=== PATIENT | male | born 1980 | race Caucasian/White ===

== ENCOUNTER 2017-02-27 19:03 | Emergency (ER) | payer OTHER ==
[2017-02-27] MEDS ORDERED: Sodium Chloride 0.9% 1000 ML 1,000 ML IV SCH (19:30)
--- NOTE | 2017-02-27 19:47 | ERPHSYRPT ---
- History of Present Illness Time Seen by Provider: 02/27/17 19:11 Source: patient Exam Limitations: no limitations Patient Subjective Stated Complaint: pt arr sobbing and crying states he needs to be seen for his derpession-he has no way to get to his appt and is out of his meds -he has been staying in his room for 3 weeks coming out only to go to the br and tonight he decided to come get help -he denied suicidal or homicidal ideations Triage Nursing Assessment: pt is awake and alert and able to answer questions Physician History: FOR THE PAST 3 WEEKS PT HAS HAD A COUGH PRODUCTIVE OF WHITE PHLEGM AND INTERMITTENT SHORTNESS OF AIR; FOR THE PAST 2 DAYS PAIN IN BOTH LEGS; TODAY CRYING ALL DAY. PT STATES HE HAS BEEN SECLUDED IN HIS ROOM AT HOME FOR THE PAST 3 WEEKS. PT STATES HE HAD A PULMONARY EMBOLUS IN MAY 2016 AND WAS PLACED ON A BLOOD THINNER BUT HE HAS NOT TAKEN ANY OF HIS MEDICATIONS FOR THE PAST 3 MONTHS. PT DENIES SUICIDAL OR HOMICIDAL THOUGHTS TODAY; ADMITS TO 3 SUICIDE ATTEMPTS FROM 2013 - SEPTEMBER 2014. Allergies/Adverse Reactions: escitalopram oxalate [From Lexapro] Allergy (Mild, Verified 02/27/17 19:21) Hives IRREGULAR MOOD SWINGS ibuprofen Allergy (Mild, Verified 02/27/17 19:21) Skin Irritation EATS AWAY MY STOMACH LINING loratadine [From Claritin-D] Allergy (Mild, Verified 02/27/17 19:21) Difficulty Breathing pseudoephedrine sulfate [From Claritin-D] Allergy (Mild, Verified 02/27/17 19:21 ) Difficulty Breathing Home Medications: Aa8/A-Carnitin/Grp/[place]/Hc126 [Gabadone Capsule] 300 mg 02/27/17 [History] Lurasidone HCl [Latuda] 40 mg PO 02/27/17 [History] PANTOPRAZOLE 40 mg Tablet [Protonix 40MG Tablet] 1 tab 02/27/17 [History] Venlafaxine HCl [Effexor] 1 tab 02/27/17 [History] Hx Tetanus, Diphtheria Vaccination/Date Given: Yes Hx Influenza Vaccination/Date Given: No Hx Pneumococcal Vaccination/Date Given: No - Review of Systems Respiratory: Cough, Dyspnea Abdominal/Gastrointestinal: No Abdominal Pain, No Vomiting Musculoskeletal: Other (PAIN IN LEGS) Psychological: Anxiety, Depression, Emotional Lability All Other Systems: Reviewed and Negative - Past Medical History Pertinent Past Medical History: Yes Neurological History: Migraines ENT History: No Pertinent History Cardiac History: No Pertinent History Respiratory History: Asthma Endocrine Medical History: No Pertinent History Musculoskeletal History: Other GI Medical History: Hernia History: No Pertinent History Psycho-Social History: Anxiety, Depression, Panic Disorder Male Reproductive Disorders: No Pertinent History Other Medical History: PSYCHOTIC TENDANCIES. PARANOID TENDANCIES. ADHD. ADD. INTERMITTENT EXPLOSIVE DISORDER - Past Surgical History Past Surgical History: Yes Neuro Surgical History: No Pertinent History Cardiac: No Pertinent History Respiratory: No Pertinent History Gastrointestinal: No Pertinent History Genitourinary: No Pertinent History Musculoskeletal: No Pertinent History Male Surgical History: Vasectomy Other Surgical History: LEFT ET RIGHT INGUINAL HERNIA REPAIR - Social History Smoking Status: Former smoker How long have you smoked: 1 YEAR Exposure to second hand smoke: Yes Drug Use: none Patient Lives Alone: No - Nursing Vital Signs Nursing Vital Signs: Initial Vital Signs Temperature 98.1 F 02/27/17 19:14 Pulse Rate 110 H 02/27/17 19:14 Respiratory Rate 20 02/27/17 19:14 Blood Pressure 132/110 02/27/17 19:14 O2 Sat by Pulse Oximetry 99 02/27/17 19:14 Pain Scale Pain Intensity 0 - Physical Exam General Appearance: alert Eye Exam: PERRL/EOMI Ears, Nose, Throat Exam: TMs normal, moist mucous membranes, pharyngeal erythema Neck Exam: normal inspection Respiratory Exam: wheezing (MINIMAL EXPIRATORY WHEEZING AT POSTERIOR BASES.) Cardiovascular Exam: normal heart sounds Gastrointestinal/Abdomen Exam: soft, normal bowel sounds Back Exam: normal range of motion Extremity Exam: other (PAIN ELICITED IN RIGHT CALF ON DORSIFLEXION OF THE RIGHT FOOT.) Neurologic Exam: alert, cooperative, depressed mood/affect Skin Exam: warm, dry SpO2 Interpretation: normal SpO2: 99 Oxygen Delivery: Room Air - Course Nursing assessment & vital signs reviewed: Yes EKG Interpreted by Me: RATE (97), Sinus Rhythm, NORMAL AXIS, NORMAL INTERVALS - Radiology Ultrasound Exam Venous Lower Extremity Ultrasound: Other (TECH REPORT: NO DVT EITHER LOWER EXTREMITY.) Ordered Tests: Active Orders 24 hr Category Date Time Status Refrigeration Supervisor STAT Care 02/27/17 19:27 Active Clean Catch Urine Specimen STAT Care 02/27/17 19:25 Active EKG-ER Only STAT Care 02/27/17 19:25 Active IV Insertion STAT Care 02/27/17 19:25 Active Oxygen-ED Only NASAL CANNULA 2 lpm Care 02/27/17 19:25 Active Psychiatric Evaluation STAT Care 02/27/17 20:34 Active Pulse Oximetry (ED) STAT Care 02/27/17 19:25 Active CHEST 2 VIEWS (PA AND LAT) Stat Exams 02/27/17 19:27 Taken VENOUS BILATERAL EXTREMITY [US] Stat Exams 02/27/17 19:31 Ordered AMYLASE Stat Lab 02/27/17 19:45 Completed BLOOD CULTURE Stat Lab 02/27/17 20:03 Received CBC W DIFF Stat Lab 02/27/17 19:45 Completed CMP Stat Lab 02/27/17 19:45 Completed CULTURE, THROAT Stat Lab 02/27/17 20:02 Received CULTURE,SPUTUM Stat Lab 02/27/17 20:00 Received D-DIMER QUANTITATION Stat Lab 02/27/17 19:45 Completed LIPASE Stat Lab 02/27/17 19:45 Completed MAGNESIUM Stat Lab 02/27/17 19:45 Completed [place] Screen Stat Lab 02/27/17 19:45 Completed PROTIME WITH INR Stat Lab 02/27/17 19:45 Completed PTT Stat Lab 02/27/17 19:45 Completed STREP SCREEN-BETA A Stat Lab 02/27/17 20:02 Completed TROPONIN Q3H Lab 02/27/17 19:45 Completed TROPONIN Q3H Lab 02/27/17 22:45 Received UA W/RFX UR CULTURE Stat Lab 02/27/17 19:45 Completed Urine Triage Profile Stat Lab 02/27/17 21:00 Completed Medication Summary Generic Name Dose Route Start Last Admin Trade Name Freq PRN Reason Stop Dose Admin Sodium Chloride 1,000 mls @ 100 mls/hr 02/27/17 19:30 02/27/17 19:54 Sodium Chloride 0.9% 1000 Ml IV 03/29/17 19:29 100 mls/hr .Q10H BUCKY Administration Discontinued Medications Generic Name Dose Route Start Last Admin Trade Name Freq PRN Reason Stop Dose Admin Potassium Chloride 10 meq 02/27/17 20:34 02/27/17 20:37 Klor Con 10 Meq PO 02/27/17 20:35 10 meq STAT ONE Administration Potassium Chloride Confirm 02/27/17 20:36 Klor Con 10 Meq Administered 02/27/17 20:37 Dose 10 meq PO .STK-MED ONE Lab/Rad Data: Laboratory Result Diagrams 02/27/17 19:45 02/27/17 19:45 Laboratory Results 02/27/17 02/27/17 02/27/17 Range/Units 21:00 20:02 20:02 WBC (4.0-10.5) K/mm3 RBC (4.1-5.6) M/mm3 Hgb (12.5-18.0) gm/dl Hct (42-50) % MCV (78-100) fl MCH (26-32) pg MCHC (32-36) g/dl RDW (11.5-14.0) % Plt Count (150-450) K/mm3 MPV (6-9.5) fl Gran % (36.0-66.0) % Lymphocytes % (24.0-44.0) % Monocytes % (0.0-12.0) % Eosinophils % (0.00-5.0) % Basophils % (0.0-0.4) % Basophils # (0-0.4) INR (0.8-3.0) APTT (24.1-36.1) SECONDS D-Dimer (0-500) ng/mL Sodium (136-145) mEq/L Potassium (3.5-5.1) mEq/L Chloride (98-107) mEq/L Carbon Dioxide (21-32) mEq/L Anion Gap (5-15) MEQ/L BUN (9-20) mg/dL Creatinine (0.55-1.30) mg/dl Estimated GFR ML/MIN Glucose (70-110) MG/DL Calcium (8.5-10.1) mg/dL Magnesium (1.8-2.4) mg/dL Total Bilirubin (0.2-1.0) mg/dL AST (15-37) U/L ALT (12-78) U/L Alkaline Phosphatase (46-116) U/L Troponin I (0.000-0.056) ng/ml Serum Total Protein (6.4-8.2) gm/dL Albumin (3.4-5.0) g/dL Amylase (25-115) U/L Lipase (73-393) U/L Ur Collection Type Urine Color (YELLOW) Urine Appearance (CLEAR) Urine pH (5-6) Ur Specific [place] (1.005-1.025) Urine Protein (Negative) Urine Ketones (NEGATIVE) Urine Blood (0-5) Reed/ul Urine Nitrite (NEGATIVE) Urine Bilirubin (NEGATIVE) Urine Urobilinogen (0-1) mg/dL Ur Leukocyte Esterase (NEGATIVE) Urine Glucose (NEGATIVE) mg/dL Urine Opiates Level NEG. (NEGATIVE) Ur Methadone NEG. (NEGATIVE) Urine Barbiturates NEG. (NEGATIVE) Ur Phencyclidine (PCP) NEG. (NEGATIVE) Urine Amphetamine NEG. (NEGATIVE) U Benzodiazepine Level NEG. (NEGATIVE) Urine Cocaine NEG. (NEGATIVE) Urine Marijuana (THC) POS. (NEGATIVE) Monoscreen (Negative) Influenza Type A Ag NEGATIVE (NEGATIVE) Influenza Type B Ag NEGATIVE (NEGATIVE) RSV (PCR) NEGATIVE (Negative) Streptococcus Screen NEGATIVE (Negative) Specimen Received 02/27/17 02/27/17 02/27/17 Range/Units 19:45 19:45 19:45 WBC (4.0-10.5) K/mm3 RBC (4.1-5.6) M/mm3 Hgb (12.5-18.0) gm/dl Hct (42-50) % MCV (78-100) fl MCH (26-32) pg MCHC (32-36) g/dl RDW (11.5-14.0) % Plt Count (150-450) K/mm3 MPV (6-9.5) fl Gran % (36.0-66.0) % Lymphocytes % (24.0-44.0) % Monocytes % (0.0-12.0) % Eosinophils % (0.00-5.0) % Basophils % (0.0-0.4) % Basophils # (0-0.4) INR (0.8-3.0) APTT (24.1-36.1) SECONDS D-Dimer (0-500) ng/mL Sodium (136-145) mEq/L Potassium (3.5-5.1) mEq/L Chloride (98-107) mEq/L Carbon Dioxide (21-32) mEq/L Anion Gap (5-15) MEQ/L BUN (9-20) mg/dL Creatinine (0.55-1.30) mg/dl Estimated GFR ML/MIN Glucose (70-110) MG/DL Calcium (8.5-10.1) mg/dL Magnesium (1.8-2.4) mg/dL Total Bilirubin (0.2-1.0) mg/dL AST (15-37) U/L ALT (12-78) U/L Alkaline Phosphatase (46-116) U/L Troponin I < 0.017 (0.000-0.056) ng/ml Serum Total Protein (6.4-8.2) gm/dL Albumin (3.4-5.0) g/dL Amylase (25-115) U/L Lipase (73-393) U/L Ur Collection Type CLEAN CATCH Urine Color STRAW (YELLOW) Urine Appearance CLEAR (CLEAR) Urine pH 5.0 (5-6) Ur Specific [place] 1.025 (1.005-1.025) Urine Protein NEGATIVE (Negative) Urine Ketones NEGATIVE (NEGATIVE) Urine Blood NEGATIVE (0-5) Reed/ul Urine Nitrite NEGATIVE (NEGATIVE) Urine Bilirubin NEGATIVE (NEGATIVE) Urine Urobilinogen NORMAL (0-1) mg/dL Ur Leukocyte Esterase NEGATIVE (NEGATIVE) Urine Glucose NEGATIVE (NEGATIVE) mg/dL Urine Opiates Level (NEGATIVE) Ur Methadone (NEGATIVE) Urine Barbiturates (NEGATIVE) Ur Phencyclidine (PCP) (NEGATIVE) Urine Amphetamine (NEGATIVE) U Benzodiazepine Level (NEGATIVE) Urine Cocaine (NEGATIVE) Urine Marijuana (THC) (NEGATIVE) Monoscreen NEGATIVE (Negative) Influenza Type A Ag (NEGATIVE) Influenza Type B Ag (NEGATIVE) RSV (PCR) (Negative) Streptococcus Screen (Negative) Specimen Received 02/27/17:2200 02/27/17 02/27/17 02/27/17 Range/Units 19:45 19:45 19:45 WBC 5.6 (4.0-10.5) K/mm3 RBC 5.04 (4.1-5.6) M/mm3 Hgb 15.5 (12.5-18.0) gm/dl Hct 44.1 (42-50) % MCV 87.5 (78-100) fl MCH 30.8 (26-32) pg MCHC 35.1 (32-36) g/dl RDW 12.3 (11.5-14.0) % Plt Count 290 (150-450) K/mm3 MPV 9.9 H (6-9.5) fl Gran % 53.0 (36.0-66.0) % Lymphocytes % 29.7 (24.0-44.0) % Monocytes % 8.5 (0.0-12.0) % Eosinophils % 8.3 H (0.00-5.0) % Basophils % 0.5 (0.0-0.4) % Basophils # 0.03 (0-0.4) INR 1.15 (0.8-3.0) APTT 32.5 (24.1-36.1) SECONDS D-Dimer 304 (0-500) ng/mL Sodium 140 (136-145) mEq/L Potassium 3.4 L (3.5-5.1) mEq/L Chloride 106 (98-107) mEq/L Carbon Dioxide 21.7 (21-32) mEq/L Anion Gap 15.2 H (5-15) MEQ/L BUN 10 (9-20) mg/dL Creatinine 1.10 (0.55-1.30) mg/dl Estimated GFR > 60 ML/MIN Glucose 96 (70-110) MG/DL Calcium 9.0 (8.5-10.1) mg/dL Magnesium 1.9 (1.8-2.4) mg/dL Total Bilirubin 0.80 (0.2-1.0) mg/dL AST 13 L (15-37) U/L ALT 16 (12-78) U/L Alkaline Phosphatase 94 (46-116) U/L Troponin I (0.000-0.056) ng/ml Serum Total Protein 7.6 (6.4-8.2) gm/dL Albumin 4.1 (3.4-5.0) g/dL Amylase 67 (25-115) U/L Lipase 150 (73-393) U/L Ur Collection Type Urine Color (YELLOW) Urine Appearance (CLEAR) Urine pH (5-6) Ur Specific [place] (1.005-1.025) Urine Protein (Negative) Urine Ketones (NEGATIVE) Urine Blood (0-5) Reed/ul Urine Nitrite (NEGATIVE) Urine Bilirubin (NEGATIVE) Urine Urobilinogen (0-1) mg/dL Ur Leukocyte Esterase (NEGATIVE) Urine Glucose (NEGATIVE) mg/dL Urine Opiates Level (NEGATIVE) Ur Methadone (NEGATIVE) Urine Barbiturates (NEGATIVE) Ur Phencyclidine (PCP) (NEGATIVE) Urine Amphetamine (NEGATIVE) U Benzodiazepine Level (NEGATIVE) Urine Cocaine (NEGATIVE) Urine Marijuana (THC) (NEGATIVE) Monoscreen (Negative) Influenza Type A Ag (NEGATIVE) Influenza Type B Ag (NEGATIVE) RSV (PCR) (Negative) Streptococcus Screen (Negative) Specimen Received - Progress Discussed with : Other (SPOKE WITH DR DE SOUZA FROM [facility] IN [place] - PT MAY GO HOME.) - Departure Time of Disposition: 23:14 Departure Disposition: Home Clinical Impression: BRONCHITIS, PHARYNGITIS, DEPRESSION, ANXIETY Condition: Stable Critical Care Time: No Referrals: HOSPITAL,'S [Primary Care Provider] - Instructions: Bronchitis Additional Instructions: FOLLOW UP WITH [facility] TOMORROW. [facility]. Prescriptions: Guaifenesin/Codeine Phosphate [Robitussin AC Syrup] 10 ml PO Q4H PRN PRN #120 ml PRN Reason: Cough Cephalexin Monohydrate [Keflex] 500 mg PO TID #30 capsule
[2017-02-27] MEDS ORDERED: Sodium Chloride 0.9% 1000 ML 1,000 ML ONE (19:48)
[2017-02-27 20:08] LABS: BASOPHIL % 0.5 % (0.0-0.4); Eosinophil % 8.3 % (0.00-5.0); Lymphocytes % 29.7 % (24.0-44.0); Mean Cell Volume 87.5 fl (78-100); Mean Corpuscular Hemoglobin 30.8 pg (26-32); Mean Platelet Volume 9.9 fl (6-9.5); Monocytes % 8.5 % (0.0-12.0); Platelet Count 290 K/mm3 (150-450); Red Blood Count 5.04 M/mm3 (4.1-5.6); Red Cell Distribution Width 12.3 % (11.5-14.0); White Blood Count 5.6 K/mm3 (4.0-10.5)
[2017-02-27 20:17] LABS: Collection Type CLEAN CATCH
[2017-02-27 20:18] LABS: ADD URINE CULTURE? NO (NO); Bilirubin NEGATIVE (NEGATIVE); Blood NEGATIVE Ery/ul (0-5); COMPLETE URINE MICROSCOPIC? NO; Glucose NEGATIVE (NEGATIVE); Leukocyte Esterase NEGATIVE (NEGATIVE)
[2017-02-27 20:29] LABS: INR 1.15 (0.8-3.0)
[2017-02-27 20:31] LABS: ALBUMIN 4.1 g/dL (3.4-5.0); ALKALINE PHOSPHATASE 94 U/L (46-116); ANION GAP 15.2 MEQ/L (5-15); BLOOD UREA NITROGEN 10 mg/dL (9-20); CHLORIDE 106 mEq/L (98-107); Carbon Dioxide 21.7 mEq/L (21-32); Glucose 96 MG/DL (70-110); LIPASE 150 U/L (73-393); MAGNESIUM 1.9 mg/dL (1.8-2.4); PTT 32.5 SECONDS (24.1-36.1); Potassium 3.4 mEq/L (3.5-5.1); SGOT/AST 13 U/L (15-37); SGPT/ALT 16 U/L (12-78); SODIUM 140 mEq/L (136-145); Total Protein 7.6 gm/dL (6.4-8.2)
[2017-02-27] MEDS ORDERED: Klor Con 10 MEQ PO ONE ×2 (20:34→20:36)
[2017-02-27] MEDS ORDERED: ROCEPHIN 1 Gm-D5w 50 ml Bag** 1 G/50 ML IVPB IV STA (23:22)
[2017-02-27] MEDS ORDERED: Robitussin AC Syrup Unit Dose Cup PO PRN (23:23)
[2017-02-27] MEDS ORDERED: Robitussin AC Syrup Unit Dose Cup ONE (23:26)
[2017-02-27] MEDS ORDERED: ROCEPHIN 1 Gm-D5w 50 ml Bag** 1 G/50 ML IVPB IV ONE (23:26)
[2017-02-28 01:47] VITALS: BP 154/79; PULSE 76; O2SAT 100
--- NOTE | 2017-02-28 09:03 | XRAY ---
Indication: Cough. Comparison: None PA/lateral chest hyperinflated and clear. Heart is not enlarged. Vascularity normal. Bony thorax intact. Impression: Nonacute hyperinflated chest.
--- NOTE | 2017-02-28 09:03 | XRAY ---
Indication: Right calf pain. History of PE. Two-dimensional sonogram and color Doppler imaging of the major venous vessels of the left and right leg was performed. Comparison: None No thrombus seen in the examined deep venous vessels of the left and right leg including greater saphenous veins. Veins demonstrate normal compressibility. Venous waveforms are normal with and without augmentation. Impression: Left and right leg negative for DVT. Comment: Preliminary report was given.
== END 2017-02-28 01:47 | disposition home or self-care (01) ==
LOC: ED 19:03
DX: J40 Bronchitis, not specified as acute or chronic (principal); J02.9 Acute pharyngitis, unspecified; F32.9 Major depressive disorder, single episode, unspecified; F41.9 Anxiety disorder, unspecified
CPT/HCPCS: 36000; 36415; 71020; 80053; 80307; 81002; 82150; 83690; 83735; 84484; 85025; 85379; 85610; 85730; 86308; 87040; 87070; 87430; 87631; 90791; 93005; 93041; 93970; 99285; J0696; Q3014; A9270-GY

== ENCOUNTER 2017-07-05 13:46 | Emergency (ER) | payer OTHER ==
--- NOTE | 2017-07-05 14:09 | ERPHSYRPT ---
- History of Present Illness Time Seen by Provider: 07/05/17 14:03 Source: patient Exam Limitations: no limitations Patient Subjective Stated Complaint: Pt states "I am having trouble breathing since 0430 this morning. It is getting worse and worse. My sides hurt and so do my back." Triage Nursing Assessment: Pt alert and oriented X 3, skin pwd. Pt tachypneic. Pt ambulates with a steady upright gait, able to speak in clear full sentences. Physician History: The patient is a 36-year-old male with his complaining of worsening shortness of breath and wheezing that began this morning when he woke up. He's had intermittent shortness of breath and wheezing for the past month. Today it was significantly worse. He's also had an intermittent cough. He denies fever or chills. His past medical history is significant for depression, anger problems, and hallucinations. Timing/Duration: today Activities at Onset: sleep Severity of Dyspnea-Max: moderate Severity of Dyspnea-Current: moderate Possible Cause: frequent episodes, smoke exposure (second hand) Modifying Factors: Improves With: activity Associated Symptoms: cough, wheezing, No fever Allergies/Adverse Reactions: divalproex sodium [From Depakote] Allergy (Severe, Verified 07/05/17 13:58) throat swells escitalopram oxalate [From Lexapro] Allergy (Mild, Verified 02/27/17 19:21) Hives IRREGULAR MOOD SWINGS ibuprofen Allergy (Mild, Verified 02/27/17 19:21) Skin Irritation EATS AWAY MY STOMACH LINING loratadine [From Claritin-D] Allergy (Mild, Verified 02/27/17 19:21) Difficulty Breathing pseudoephedrine sulfate [From Claritin-D] Allergy (Mild, Verified 02/27/17 19:21 ) Difficulty Breathing Home Medications: Venlafaxine HCl [Effexor] 1 tab PO DAILY 02/27/17 [History] Hx Tetanus, Diphtheria Vaccination/Date Given: Yes Hx Influenza Vaccination/Date Given: No Hx Pneumococcal Vaccination/Date Given: No Immunizations Up to Date: Yes - Review of Systems Constitutional: No Fever, No Chills Eyes: No Symptoms Ears, Nose, & Throat: No Symptoms Respiratory: Cough, Dyspnea, Wheezing Cardiac: No Chest Pain, No Edema, No Syncope Abdominal/Gastrointestinal: No Abdominal Pain, No Nausea, No Vomiting, No Diarrhea Genitourinary Symptoms: No Symptoms Musculoskeletal: No Back Pain, No Neck Pain Skin: No Rash Neurological: No Dizziness, No Focal Weakness, No Sensory Changes Psychological: No Symptoms Endocrine: No Symptoms Hematologic/Lymphatic: No Symptoms Immunological/Allergic: No Symptoms All Other Systems: Reviewed and Negative - Past Medical History Pertinent Past Medical History: Yes Neurological History: Migraines ENT History: No Pertinent History Cardiac History: No Pertinent History Respiratory History: Asthma Endocrine Medical History: No Pertinent History Musculoskeletal History: Other GI Medical History: Hernia History: No Pertinent History Psycho-Social History: Anxiety, Depression, Panic Disorder Male Reproductive Disorders: No Pertinent History Other Medical History: PSYCHOTIC TENDANCIES. PARANOID TENDANCIES. ADHD. ADD. INTERMITTENT EXPLOSIVE DISORDER - Past Surgical History Past Surgical History: Yes Neuro Surgical History: No Pertinent History Cardiac: No Pertinent History Respiratory: No Pertinent History Gastrointestinal: No Pertinent History Genitourinary: No Pertinent History Musculoskeletal: No Pertinent History Male Surgical History: Vasectomy Other Surgical History: LEFT ET RIGHT INGUINAL HERNIA REPAIR - Social History Smoking Status: Former smoker How long have you smoked: 1 YEAR Exposure to second hand smoke: Yes Drug Use: none Patient Lives Alone: No - Nursing Vital Signs Nursing Vital Signs: Initial Vital Signs Temperature 98.5 F 07/05/17 13:52 Pulse Rate 128 H 07/05/17 13:52 Respiratory Rate 22 07/05/17 13:52 Blood Pressure 151/76 07/05/17 13:52 O2 Sat by Pulse Oximetry 95 07/05/17 13:52 Pain Scale Pain Intensity 8 - Physical Exam General Appearance: moderate distress Eye Exam: PERRL/EOMI Ears, Nose, Throat Exam: hearing grossly normal Neck Exam: normal inspection, supple Respiratory Exam: wheezing Cardiovascular/Chest Exam: tachycardia Abdominal/Gastrointestinal Exam: soft, No tenderness, No distention, No mass Rectal Exam: not done Extremity Exam: non-tender, normal range of motion, normal inspection, no calf tenderness, no pedal edema Neurologic Exam: alert, oriented x 3, cooperative, nozzle tender II-XII nml as tested, sensation nml, No motor deficits Skin Exam: normal color, warm, No dry SpO2 Interpretation: normal SpO2: 95 Oxygen Delivery: Room Air - Radiology Exams Chest X-ray Interpretation: Reviewed by me, Teleradiologist Report, Negative (per Dr Mcneal.) Ordered Tests: Active Orders 24 hr Category Date Time Status Loss Prevention Consultant STAT Care 07/05/17 14:13 Active IV Insertion STAT Care 07/05/17 14:12 Active CHEST 2 VIEWS (PA AND LAT) Stat Exams 07/05/17 14:13 Completed BMP Stat Lab 07/05/17 14:20 Received CBC W DIFF Stat Lab 07/05/17 14:20 Completed Lactic Acid Stat Lab 07/05/17 14:36 Completed Respiratory Nebulizer STAT RT 07/05/17 14:14 Completed Medication Summary Discontinued Medications Generic Name Dose Route Start Last Admin Trade Name Freq PRN Reason Stop Dose Admin Albuterol/Ipratropium 3 ml 07/05/17 14:12 07/05/17 14:25 Duoneb 0.5-3 Mg/3 Ml Neb IH 07/05/17 14:13 3 ml STAT ONE Administration Albuterol/Ipratropium Confirm 07/05/17 14:22 Duoneb 0.5-3 Mg/3 Ml Neb Administered 07/05/17 14:23 Dose 3 ml IH .STK-MED ONE Ketorolac Tromethamine 30 mg 07/05/17 15:01 Toradol 30 Mg Injection IV 07/05/17 15:02 STAT ONE Methylprednisolone Sodium Succinate 125 mg 07/05/17 14:12 07/05/17 14:28 Solu-Medrol 125 Mg IV 07/05/17 14:13 125 mg STAT ONE Administration Methylprednisolone Sodium Succinate Confirm 07/05/17 14:27 Solu-Medrol 125 Mg Administered 07/05/17 14:28 Dose 125 mg .ROUTE .STK-MED ONE Lab/Rad Data: Laboratory Result Diagrams 07/05/17 14:20 Laboratory Results 07/05/17 07/05/17 07/05/17 Range/Units 14:38 14:36 14:20 WBC 8.0 (4.0-10.5) K/mm3 RBC 5.18 (4.1-5.6) M/mm3 Hgb 15.5 (12.5-18.0) gm/dl Hct 45.7 (42-50) % MCV 88.2 (78-100) fl MCH 29.9 (26-32) pg MCHC 33.9 (32-36) g/dl RDW 12.6 (11.5-14.0) % Plt Count 270 (150-450) K/mm3 MPV 10.0 H (6-9.5) fl Gran % 46.1 (36.0-66.0) % Lymphocytes % 27.4 (24.0-44.0) % Monocytes % 11.3 (0.0-12.0) % Eosinophils % 14.6 H (0.00-5.0) % Basophils % 0.6 (0.0-0.4) % Basophils # 0.05 (0-0.4) Lactic Acid 1.1 (0.4-2.0) Influenza Type A Ag NEGATIVE (NEGATIVE) Influenza Type B Ag NEGATIVE (NEGATIVE) - Progress Progress: improved Air Movement: good Counseled pt/family regarding: lab results, diagnosis, need for follow-up, rad results - Departure Time of Disposition: 15:03 Departure Disposition: Home Clinical Impression: Bronchospasm Condition: Stable Critical Care Time: No Referrals: HOSPITAL,'S [Primary Care Provider] - Additional Instructions: You have wheezing and shortness of breath that is caused by bronchospasm. You were given a DuoNeb breathing treatment and Solu-Medrol 125 mg by IV in the ER. You were also given Toradol 60 mg by IV. Starting tomorrow, take prednisone 60 mg daily for 5 days. [facility] Prescriptions: Prednisone 20 mg [Deltasone 20 mg] 3 tab PO DAILY #15 tablet
[2017-07-05] MEDS ORDERED: DUONEB 0.5-3 MG/3 ml Neb IH ONE ×2 (14:12→14:22)
[2017-07-05] MEDS ORDERED: solu-MEDROL 125 MG IV ONE (14:12)
[2017-07-05] MEDS ORDERED: solu-MEDROL 125 MG ONE (14:27)
[2017-07-05 14:30] LABS: BASOPHIL % 0.6 % (0.0-0.4); Basophil (Absolute #) 0.05 (0-0.4); Eosinophil % 14.6 % (0.00-5.0); Eosinophil (Absolute #) 1.17 (0-0.5); Granulocyte Absolute (ANC) 3.71 (1.4-6.9); Granulocytes % 46.1 % (36.0-66.0); Hematocrit 45.7 % (42-50); Hemoglobin 15.5 gm/dl (12.5-18.0); Lymphocytes % 27.4 % (24.0-44.0); Mean Cell Volume 88.2 fl (78-100); Mean Corpuscular Hemoglobin 29.9 pg (26-32); Mean Corpuscular Hgb Concent. 33.9 g/dl (32-36); Monocyte (Absolute #) 0.91 (0.0-1.3); Monocytes % 11.3 % (0.0-12.0); Platelet Count 270 K/mm3 (150-450); Red Blood Count 5.18 M/mm3 (4.1-5.6); Red Cell Distribution Width 12.6 % (11.5-14.0)
[2017-07-05 14:44] LABS: BLOOD UREA NITROGEN 17 mg/dL (9-20); CHLORIDE 107 mEq/L (98-107); Calcium 9.3 mg/dL (8.5-10.1); Carbon Dioxide 26.5 mEq/L (21-32); Creatinine 1 1.24 mg/dl (0.55-1.30); EST GLOMERULAR FILTRATION RATE > 60 ML/MIN; Glucose 98 MG/DL (70-110); SODIUM 143 mEq/L (136-145)
--- NOTE | 2017-07-05 14:51 | XRAY ---
Indication: Back and left-sided chest pain. Comparison: February 27, 2017. PA/lateral chest again hyperinflated and clear. Heart is not enlarged. Bony thorax intact. No new/acute findings. Impression: Stable nonacute hyperinflated chest.
[2017-07-05 14:55] LABS: INFLUENZA A NEGATIVE (NEGATIVE); INFLUENZA B NEGATIVE (NEGATIVE)
[2017-07-05] MEDS ORDERED: TORAdol 30 mg Injection IV ONE (15:01)
[2017-07-05] MEDS ORDERED: TORAdol 30 mg Injection ONE (15:03)
[2017-07-05 15:13] VITALS: BP 110/78; PULSE 90; O2SAT 97
== END 2017-07-05 15:54 | disposition home or self-care (01) ==
LOC: ED 13:46
DX: J98.01 Acute bronchospasm (principal)
CPT/HCPCS: 36000; 36415; 71020; 80048; 83605; 85025; 87400; 93041; 94640; 96374; 99284; J1885; J2930; A9270-GY